=== PATIENT | female | born 2000 | race Caucasian/White ===

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

== ENCOUNTER 2019-03-15 07:31 | Emergency (ER) | payer BC ==
[2019-03-15 07:53] VITALS: BP 118/74
--- NOTE | 2019-03-15 08:00 | UC ---
Respiratory Complaint HPI - HPI Summary HPI Summary: 18 yo female present with complaint of chest congestion, bilateral ear pain and sore throat for the past 4 days. [place] feverish, chills last night, did not take her temperature. States she was treated for pneumonia last year, gets frequent otitis media. States she was unable to sleep well last night due to ear pressure /pain. - History of Current Complaint Chief Complaint: UCGeneralIllness Stated Complaint: COUGH,CONGESTION,ST Time Seen by Provider: 03/15/19 08:00 Hx Last Menstrual Period: 07/21/18 on BCP Onset/Duration: Sudden Onset, Lasting Days - 4 Pain Intensity: 6 Associated Signs And Symptoms: Positive: Chills, URI, Nasal Congestion, Hoarseness, Sinus Discomfort. Negative: Dyspnea, Wheezing, Hemoptysis - Allergies/Home Medications Allergies/Adverse Reactions: Allergies Allergy/AdvReac Type Severity Reaction Status Date / Time pesticide Allergy Severe Hives Verified 03/15/19 07:54 PMH/Surg Hx/FS Hx/Imm Hx Previously Healthy: Yes Respiratory History: Bronchitis, Pneumonia - Surgical History Surgical History: None - Family History Known Family History: Positive: Non-Contributory Family History: Noncontributory - Social History Alcohol Use: Rare Substance Use Type: None Smoking Status (MU): Never Smoked Tobacco - Immunization History Vaccination Up to Date: Yes Review of Systems All Other Systems Reviewed And Are Negative: Yes Constitutional: Positive: Chills, Fatigue. Negative: Fever Skin: Negative: Rash Eyes: Negative: Drainage, Eye Redness ENT: Positive: Sore Throat, Ear Ache, Nasal Discharge, Sinus Congestion, Sinus Pain/Tenderness. Negative: Epistaxis Respiratory: Positive: Cough. Negative: Shortness Of Breath Cardiovascular: Negative: Palpitations, Chest Pain Gastrointestinal: Negative: Abdominal Pain, Vomiting, Diarrhea, Nausea Genitourinary: Negative: Dysuria Motor: Positive: Negative Neurovascular: Positive: Negative Musculoskeletal: Positive: Negative Neurological: Positive: Negative Psychological: Positive: Negative Is Patient Immunocompromised?: No Physical Exam Triage Information Reviewed: Yes Appearance: Well-Appearing Vital Signs: Initial Vital Signs Temp 97.9 F 03/15/19 07:49 Pulse 64 03/15/19 07:49 Resp 18 03/15/19 07:49 BP 118/74 03/15/19 07:49 Pulse Ox 99 03/15/19 07:49 Vital Signs Reviewed: Yes Eyes: Positive: Conjunctiva Clear ENT: Positive: Pharynx normal, Nasal congestion, Nasal drainage, Sinus tenderness, Uvula midline, Other - TM's retracted bilaterally. Neck: Positive: Supple, Nontender, No Lymphadenopathy. Negative: Nuchal Rigidity Respiratory: Positive: Rhonchi - scattered ronchi, Wheezing - mild expiratory wheezing.. Negative: Respiratory distress, Decreased breath sounds, Crackles Cardiovascular: Positive: RRR, No Murmur Abdomen Description: Positive: Nontender, Soft Musculoskeletal: Positive: ROM Intact Neurological: Positive: Alert Psychological Exam: Normal Skin Exam: Normal Respiratory Course/Dx - Course Course Of Treatment: Findings consistent with acute bronchitis, had pneumonia last year and gets frequent otitis media. Treated today with Z-christina and albuterol. - Differential Dx/Diagnosis Differential Diagnosis/HQI/PQRI: Sinusitis Provider Diagnosis: Acute bronchitis Discharge ED - Sign-Out/Discharge Documenting (check all that apply): Patient Departure All imaging exams completed and their final reports reviewed: Yes - Discharge Plan Condition: Stable Disposition: HOME Prescriptions: Albuterol HFA INHALER* [Ventolin HFA Inhaler*] 2 puff INH Q6H PRN #1 mdi PRN Reason: Wheezing Azithromyxin CHRISTINA (NF) [Z-Christina (Zithromax) 250 mg tabs #6] 2 tab PO .TODAY, THEN 1 DAILY 5 Days #6 tab Patient Education Materials: Acute Bronchitis (ED) Referrals: No Primary Care Phys,NOPCP [Primary Care Provider] - Additional Instructions: Increase your fluids, take Mucinex DM over the counter as needed for cough and ibuprofen or Tylenol over the counter as needed for pain. Follow-up with Urgent Care or your Primary Care Physician if your symptoms persist or worsen. - Billing Disposition and Condition Condition: STABLE Disposition: Home
== END 2019-03-15 08:21 | disposition home or self-care (01) ==
LOC: UCCORT 07:31
DX: J20.9 Acute bronchitis, unspecified (principal)
CPT/HCPCS: 99212; G0463

== ENCOUNTER 2019-08-10 11:26 | Emergency (ER) | payer BC ==
[2019-08-10 12:17] VITALS: BP 118/92
[2019-08-10 12:27] LABS: Influenza B Molecular POSITIVE (Negative)
--- NOTE | 2019-08-10 12:38 | UC ---
FLU HPI - HPI Summary HPI Summary: 19-year-old female presents with 5-6 day history of general malaise, fatigue, headache, body aches, nasal congestion, sore throat, and occasionally productive cough for clear sputum. Patient states that she often gets chest tightness with upper respiratory infections and has an albuterol inhaler that she has been using occasionally for some mild shortness of breath. Denies ear pain, dysphagia, chest pain, palpitations, abdominal pain, nausea, vomiting, or diarrhea. - History of Current Complaint Chief Complaint: UCGeneralIllness Stated Complaint: FEVER,COUGH Time Seen by Provider: 08/10/19 12:21 Hx Obtained From: Patient Hx Last Menstrual Period: 07/26/2019 Pain Intensity: 3 - Allergy/Home Medications Allergies/Adverse Reactions: Allergies Allergy/AdvReac Type Severity Reaction Status Date / Time pesticide Allergy Severe Hives Verified 08/10/19 12:17 Home Medications: Home Medications Norgestimate-Ethinyl Estradiol [Uqc-Il-Mfhawn Tablet] 1 tab PO BEDTIME 03/24/18 [History Confirmed 08/10/19] Albuterol HFA INHALER* [Ventolin HFA Inhaler*] 2 puff INH Q6H PRN #1 mdi [Rx Confirmed 08/10/19] Benzonatate CAP* [Tessalon 100 MG CAP*] 100 mg PO TID PRN #21 cap 08/10/19 [Rx] PMH/Surg Hx/FS Hx/Imm Hx Previously Healthy: Yes - Denies significant PMH - Surgical History Surgical History: None - Family History Known Family History: Positive: Non-Contributory Family History: Noncontributory - Social History Occupation: Student Lives: With Family Alcohol Use: Occasionally Substance Use Type: None Smoking Status (MU): Never Smoked Tobacco - Immunization History Vaccination Up to Date: Yes Review of Systems All Other Systems Reviewed And Are Negative: Yes Constitutional: Positive: Fever, Chills, Fatigue Eyes: Negative: Drainage, Eye Redness ENT: Positive: Sore Throat, Nasal Discharge, Sinus Congestion. Negative: Ear Ache, Sinus Pain/Tenderness Respiratory: Positive: Shortness Of Breath, Cough Cardiovascular: Negative: Palpitations, Chest Pain Gastrointestinal: Negative: Abdominal Pain, Vomiting, Diarrhea, Nausea Genitourinary: Positive: Negative Musculoskeletal: Positive: Myalgia Neurological/Mental Status: Positive: Headache Is Patient Immunocompromised?: No Physical Exam - Summary Physical Exam Summary: GENERAL APPEARANCE: Well developed, well nourished, alert and cooperative, and appears to be in no acute distress. EYES: Conjunctiva clear. No drainage. EARS: External auditory canals and tympanic membranes clear, hearing grossly intact. NOSE: Mild to moderate nasal congestion. No nasal discharge. THROAT: Pharyngeal erythema. No tonsilar inflammation, swelling, exudate, or lesions. Uvula midline. NECK: Neck supple, non-tender without lymphadenopathy. CARDIAC: Normal S1 and S2. No S3, S4 or murmurs. Rhythm is regular. There is no peripheral edema, cyanosis or pallor. Extremities are warm and well perfused. Capillary refill is less than 2 seconds. Peripheral pulses intact. LUNGS: Clear to auscultation without rales, rhonchi, wheezing or diminished breath sounds. Loose nonproductive cough. ABDOMEN: Positive bowel sounds. Soft, nondistended, nontender. No guarding or rebound. No masses or hepatosplenomegally. Loose nonproductive cough. MUSKULOSKELETAL: ROM intact to all extremities. No joint erythema or tenderness. Normal muscular development. Normal gait. SKIN: Skin normal color, texture and turgor with no lesions or eruptions. Triage Information Reviewed: Yes Vital Signs: Initial Vital Signs Temp 99.0 F 08/10/19 12:14 Pulse 85 08/10/19 12:14 Resp 16 08/10/19 12:14 BP 118/92 08/10/19 12:14 Pulse Ox 99 08/10/19 12:14 Vital Signs Reviewed: Yes Flu Course/Dx - Course Course Of Treatment: 19-year-old female presents with 5-6 day history of general malaise, fatigue, headache, body aches, nasal congestion, sore throat, and occasionally productive cough for clear sputum. Patient states that she often gets chest tightness with upper respiratory infections and has an albuterol inhaler that she has been using occasionally for some mild shortness of breath. Denies ear pain, dysphagia, chest pain, palpitations, abdominal pain, nausea, vomiting, or diarrhea. Afebrile. Vital signs stable. Patient had mild to moderate nasal congestion, normal TMs, pharyngeal erythema without tonsillar swelling or exudate, no cervical lymphadenopathy, clear bilateral breath sounds, loose nonproductive cough, otherwise unremarkable exam. Rapid flu test was positive for influenza B. Reviewed results with the patient. Recommending continued symptomatic treatment including Tessalon Perles 1 capsule every 8 hours as needed for cough. She is to return here or follow up with her primary care provider in 5 days if symptoms are not improving. Anticipatory guidance and warning symptoms reviewed with the patient. Verbalizes understanding and agrees with plan of care. - Differential Dx/Diagnosis Differential Diagnosis/HQI/PQRI: Bronchitis, Influenza, Pneumonia, Upper Respiratory Infection Provider Diagnosis: Influenza B Discharge ED - Sign-Out/Discharge Documenting (check all that apply): Patient Departure All imaging exams completed and their final reports reviewed: No Studies - Discharge Plan Condition: Stable Disposition: HOME Prescriptions: Benzonatate CAP* [Tessalon 100 MG CAP*] 100 mg PO TID PRN #21 cap PRN Reason: Cough Patient Education Materials: Influenza (ED) Forms: *School Release Referrals: No Primary Care Phys,NOPCP [Primary Care Provider] - Additional Instructions: Your flu test in the clinic today was positive for influenza B. Get plenty of rest. Drink plenty of fluids to avoid dehydration especially if you are running any fever. Take over the counter acetaminophen (Tylenol) or ibuprofen (Advil, Motrin) according to directions as needed for pain or fever. Use an over the counter decongestant such as Sudafed according to directions as needed for congestion. Take Tessalon Perles 1 cap every 8 hours as needed for cough. Continue to use your albuterol inhaler as directed for any shortness of breath or wheezing. Use salt water gargles several times a day if you have a sore throat. You may also use Chloraseptic spray or Cepacol lonzenges according to directions which contain a numbing medication and can provide some temporary relief from your sore throat. Return here of [place] [facility] [place] [place] if symptoms persist. Seek immediate medical attention in the emergency room if you have fever greater than 100.5 F despite taking acetaminophen or ibuprofen, have chest pain , difficulty breathing, are unable to swallow, or have any worsening of symptoms. - Billing Disposition and Condition Condition: STABLE Disposition: Home
== END 2019-08-10 13:04 | disposition home or self-care (01) ==
LOC: UCCORT 11:26
DX: J10.1 Influenza due to other identified influenza virus with other respiratory manifestations (principal); Z91.09 Other allergy status, other than to drugs and biological substances
CPT/HCPCS: 99211; G0463